=== PATIENT | female | born 1995 | race Two or more races ===

== ENCOUNTER 2018-11-10 00:23 | Inpatient (IN) | payer OTHER ==
[~2018-11-10] VITALS: Ht 165.1 cm; Wt 113.4 kg
[2018-11-10] MEDS ORDERED: PRENATAL TABLE1 EAC4 PO (02:01)
== END 2018-11-12 11:41 | DRG 807 ==
LOC: OB/GYN 00:23 → LDR 00:23 → OB/GYN 06:20
PROVIDERS: ADMIT Obstetrics & Gynecology
PROC: 10E0XZZ Delivery of Products of Conception, External Approach (ICD-10-PCS; principal; 2018-11-10)
PROC: 0HQ9XZZ Repair Perineum Skin, External Approach (ICD-10-PCS; 2018-11-10)
PROC: 4A0HXFZ Measurement of Products of Conception, Cardiac Rhythm, External Approach (ICD-10-PCS; 2018-11-10)
DX: O70.0 First degree perineal laceration during delivery (principal); Z37.0 Single live birth; Z3A.38 38 weeks gestation of pregnancy